=== PATIENT | female | born 1955 | race Asian ===

== ENCOUNTER → 2017-06-01 | Day surgery (SDC) | payer BC, OTHER ==
--- NOTE | 2017-06-02 09:40 | OP ---
DATE OF OPERATION: 06/01/2017 PREOPERATIVE DIAGNOSIS: Left breast hemorrhagic cyst with hypoechoic mass. POSTOPERATIVE DIAGNOSIS: Left breast hemorrhagic cyst with hypoechoic mass. PROCEDURE: Left breast aspiration with left ultrasound-guided core biopsy. ANESTHESIA: Local. ATTENDING SURGEON: Adama Reynoso MD ESTIMATED BLOOD LOSS: Minimal. COMPLICATIONS: None. Patient was made aware of the risks and benefits of the procedure and consented. She was placed in the supine position. Under sterile conditions with 1% lidocaine for local anesthesia, first an 18-gauge needle was used to aspirate the cystic component of this complex mass. This drained out approximately 60 mL of serosanguineous fluid. Thereafter was a mass at the 1 to 2 o'clock position, 3 to 10 cm from the nipple. A 13-gauge needle was used with ultrasound guidance to obtain 6 cores which were submitted to Pathology. Likewise, under ultrasound guidance a U-shaped clip was placed into the mass. This was well tolerated by patient. Steri-Strip and sterile bandage was applied as well as an Gilles wrap to compress the breast and decrease reaccumulation. Patient tolerated the procedure well. Will contact her with results. ADAMA REYNOSO M.D. [id number]
--- NOTE | 2017-06-04 16:35 | PATH ---
Surgical Pathology Report Patient Name: GARETH CARL [facility]. Rec. #: [id number] /Age/Gender: 1955 (Age: 61) / F Account: [id number] Location: Taken: 06/01/2017 Received: 06/01/2017 Reported: 06/04/2017 Physicians: Citlali Restrepo M.D. Specimen(s) Received LEFT BREAST 1-2 N3-10 CORE BIOPSY Clinical History Palpable mass Ultrasound findings: suspicious Large left breast hemorrhagic mass Final Diagnosis BREAST, LEFT, 1-2:00 N3-10, CORE BIOPSY: PREDOMINANTLY NECROTIC TISSUE WITH SCANT DETACHED FRAGMENTS OF MALIGNANT DUCTAL EPITHELIUM AND ONE MINUTE (< 1 MM) FOCUS OF INTACT INVASIVE DUCTAL CARCINOMA PRESENT IN ASSOCIATION WITH GRANULATION TISSUE. 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 This finding supports the diagnosis. Results of ER and CO studies performed at [facility] are as follows: ER (clone [id number] mouse monoclonal antibody by [employer]): 0 % nuclear staining (Negative). CO (clone16 mouse monoclonal antibody by [employer]): 0 % nuclear staining (Negative). Her2 IHC studies are being attempted and the results will be reported an addendum. Positive and negative controls (internal if applicable) show appropriate results. Formalin fixation and cold ischemic times are within current ASCO/CAP recommendations for ER, CO and Her2 testing. Electronically Signed Elva Ferguson M.D. Addendum Reported: 06/07/2017 Addendum Diagnosis Results of Her2 (IHC) studies performed at [place], [place] ([id number]) are as follows: Her2 IHC (EP3 from [employer], formerly known as [id number], using [employer] Polymer Refine detection kit): 0 (Negative). Positive and negative controls (internal if applicable) show appropriate results. Elva Ferguson M.D. Gross Description Received in formalin labeled "left breast 1-2:00, 3-10 cmfn," is a 2.0 x 1.5 x 0.2 cm in multiple solomon-yellow, irregular to cylindrical portions of fibroadipose tissue. The formalin and filtered and the specimen is entirely submitted in one cassette. Time to formalin fixation: < 1 minute Total formalin fixation time: Approximately 7 hours. 06/01/201706/01/2017
== END | disposition home or self-care (01) ==
LOC: FRADUS-SUR 13:47
PROVIDERS: ATTEND Surgery
PROC: 0HBU3ZX Excision of Left Breast, Percutaneous Approach, Diagnostic (ICD-10-PCS; principal; 2017-06-01)
PROC: 0H9U3ZX Drainage of Left Breast, Percutaneous Approach, Diagnostic (ICD-10-PCS; 2017-06-01)
DX: C50.412 Malignant neoplasm of upper-outer quadrant of left female breast (principal); N63 Unspecified lump in breast; N60.02 Solitary cyst of left breast
CPT/HCPCS: 19083; 87899; 88305-TC; 88341-TC; 88342-TC; A4648